=== PATIENT | female | born 1985 | race Caucasian/White ===

== ENCOUNTER 2025-03-11 14:56 | Emergency (ER) | payer OTHER ==
[~2025-03-11] VITALS: Ht 147.3 cm; Wt 60.3 kg
[2025-03-11 15:47] LABS: PLATELET COUNT (AUTO) 215 K/uL (150-450); RED BLOOD CELL COUNT(AUTO) 3.99 MIL/uL (4.0-5.2); RED CELL DISTRIBUTION WIDTH 13.8 % (11.5-15.0); WHITE BLOOD COUNT (AUTO) 6.8 K/uL (4.3-11.0)
[2025-03-11 16:04] LABS: CALCIUM, SERUM 8.9 mg/dL (8.5-10.1); CREATININE 0.6 mg/dL (0.6-1.3); SODIUM SERUM 140.0 mmol/L (136-145); UREA NITROGEN, BLOOD 7.0 mg/dL (7-18)
[2025-03-11 16:22] VITALS: BP 110/70; TEMP 97.7; O2SAT 99
== END 2025-03-11 16:23 | disposition home or self-care (01) ==
LOC: ER 15:04
DX: N39.0 Urinary tract infection, site not specified (principal)
CPT/HCPCS: 36415; 80048-TC; 84703-TC; 85025-TC

== ENCOUNTER 2025-07-10 14:36 | Emergency (ER) | payer OTHER ==
[~2025-07-10] VITALS: Ht 147.3 cm; Wt 63.5 kg
[2025-07-10 14:44] VITALS: TEMP 98.1
[2025-07-10] MEDS ORDERED: LIDOCAINE VISCOUS 2% UD 15 ML UDC ONE (15:26)
[2025-07-10] MEDS ORDERED: MAG HYDROX/AL HYDROX/SIMETH 30 ML UDC ONE (15:26)
[2025-07-10] MEDS ORDERED: DICYCLOMINE HCL 10 MG CAPSULE PO ONE (15:26)
[2025-07-10] MEDS ORDERED: PANTOPRAZOLE 40 MG TABLET.DR PO ONE (15:26)
[2025-07-10] MEDS ORDERED: FAMOTIDINE (20 MG) 20 MG TABLET ONE (15:26)
[2025-07-10] MEDS: PANTOPRAZOLE 40 MG TABLET.DR PO ONE (15:30)
[2025-07-10] MEDS: DICYCLOMINE HCL 10 MG CAPSULE PO ONE (15:30)
[2025-07-10] MEDS: MAG HYDROX/AL HYDROX/SIMETH 30 ML UDC PO ONE (15:30)
[2025-07-10] MEDS: FAMOTIDINE (20 MG) 20 MG TABLET PO ONE (15:30)
[2025-07-10] MEDS: LIDOCAINE VISCOUS 2% UD 15 ML UDC MM ONE (15:33)
[2025-07-10 15:38] LABS: PLATELET COUNT (AUTO) 251 K/uL (150-450); RED BLOOD CELL COUNT(AUTO) 4.13 MIL/uL (4.0-5.2); RED CELL DISTRIBUTION WIDTH 13.5 % (11.5-15.0); WHITE BLOOD COUNT (AUTO) 9.1 K/uL (4.3-11.0)
[2025-07-10 15:48] LABS: CALCIUM, SERUM 8.6 mg/dL (8.5-10.1); CREATININE 0.9 mg/dL (0.6-1.3); SODIUM SERUM 138.0 mmol/L (136-145); UREA NITROGEN, BLOOD 18.0 mg/dL (7-18)
[2025-07-10 15:54] LABS: ASPARTATE AMINOTRANSFERASE 13.0 U/L (15-37); TOTAL PROTEIN, SERUM 7.8 g/dL (6.4-8.2)
[2025-07-10 16:10] LABS: APPEARANCE,URINE CLEAR (CLEAR); BLOOD, URINE 3+ Ery/uL (NEGATIVE); LEUKOCYTE ESTERASE ,URINE NEGATIVE (NEGATIVE); NITRITE, URINE NEGATIVE (NEGATIVE); UGLUCOSE NEGATIVE (NEGATIVE)
[2025-07-10 16:22] LABS: PREGNANCY TEST URINE QUAL NEGATIVE (NEGATIVE)
[2025-07-10] MEDS: ACETAMINOPHEN 325 MG TABLET PO ONE (16:30)
[2025-07-10] MEDS ORDERED: ACETAMINOPHEN 325 MG TABLET ONE (16:32)
[2025-07-10 16:45] LABS: ADD URINE CULTURE YES
[2025-07-10] MEDS ORDERED: OMEP40CA21 PO (17:12)
[2025-07-10] MEDS ORDERED: FAMO20TA80 PO (17:12)
[2025-07-10 17:17] VITALS: BP 129/73; O2SAT 98
== END 2025-07-10 17:17 | disposition home or self-care (01) ==
LOC: ER 14:47
DX: K29.70 Gastritis, unspecified, without bleeding (principal); Z79.899 Other long term (current) drug therapy
CPT/HCPCS: 36415; 80048-TC; 80076-TC; 81001; 83690-TC; 84703-TC; 85025-TC; 87086-TC